=== PATIENT | male | born 1990 | race Caucasian/White ===

== ENCOUNTER → 2018-02-11 07:46 | Outpatient (CLI) | payer OTHER, SELFPAY | PROVIDERS: Family Provider Pediatrics; PCP Emergency Medicine; Visit Provider Emergency Medicine | DX: R07.9 Chest pain, unspecified (principal) | CPT/HCPCS: 93017 ==

== ENCOUNTER → 2020-03-15 12:40 | Outpatient (CLI) | payer BC, SELFPAY ==
[2020-03-15 13:44] LABS: Basophils # 0.1 K/mm3 (0-0.2); Basophils % 0.8 % (0.1-2.0); Eosinophils # 0.4 K/mm3 (0.0-0.4); Eosinophils % 6.4 % (0.1-12.0); Hematocrit 44.8 % (42.0-52.0); Hemoglobin 15.2 g/dL (14.1-18.0); Lymphocytes # 1.5 K/mm3 (0.7-4.5); Mean Corpuscular Hemoglobin 28.8 pg (27.0-31.2); Mean Corpuscular Volume 84.7 fl (80-94); Mean Platelet Volume 9.1 fl (7.4-10.4); Monocytes # 0.4 K/mm3 (0.1-1.0); Monocytes % 7.2 % (1.7-9.3); Neutrophils # 3.6 K/mm3 (1.8-7.8); Neutrophils % 60.6 % (37.0-80.0); Platelet Count 196 K/mm3 (142-424); Red Blood Count 5.29 M/mm3 (4.60-6.20); Red Cell Distribution Width 12.7 % (11.5-17.5)
[2020-03-16 14:08] LABS: Covid-19 Nasal PCR Sendout Lex Not Detected
== END ==
PROVIDERS: PCP Family Medicine; Visit Provider Physician Assistant
DX: Z03.818 Encounter for observation for suspected exposure to other biological agents ruled out (principal)
CPT/HCPCS: 85025; U0004

== ENCOUNTER → 2020-05-23 11:14 | Outpatient (CLI) | payer BC, SELFPAY ==
[2020-05-23 13:46] LABS: Basophils # 0.1 K/mm3 (0-0.2); Basophils % 0.4 % (0.1-2.0); Eosinophils # 0.1 K/mm3 (0.0-0.4); Hematocrit 48.7 % (42.0-52.0); Hemoglobin 15.7 g/dL (14.1-18.0); Lymphocytes % 9.2 % (10-50); Mean Corpuscular HGB Conc 32.2 g/dL (31.8-35.4); Mean Platelet Volume 8.8 fl (7.4-10.4); Monocytes # 0.7 K/mm3 (0.1-1.0); Monocytes % 6.6 % (1.7-9.3); Neutrophils % 82.8 % (37.0-80.0); Platelet Count 189 K/mm3 (142-424); Red Cell Distribution Width 12.9 % (11.5-17.5); White Blood Count 10.9 K/mm3 (4.8-10.8)
[2020-05-23 14:40] LABS: Strep Scrn Group A (Rapid) Negative (Negative)
[2020-05-24 10:43] LABS: Covid-19 Nasal PCR Sendout Lex Not Detected
== END ==
PROVIDERS: PCP Family Medicine; Visit Provider Nurse Practitioner
DX: Z03.818 Encounter for observation for suspected exposure to other biological agents ruled out (principal)
CPT/HCPCS: 36415; 85025; 87430; U0004

== ENCOUNTER → 2020-06-17 11:33 | Outpatient (CLI) | payer BC, SELFPAY ==
--- NOTE | 2020-06-17 11:50 | ECG_ITS ---
APPROVED REPORT Exam: Resting ECG HR:70 bpm ECG Measurements Heart Rate 70 AXES ME 128 P 65 QRSd 90 QRS 84 QT 358 T 72 QTc 386 Conclusion Normal sinus rhythm Normal ECG Electronically signed by : Marcel Peres, 06/17/2020 19:06:49
== END ==
PROVIDERS: PCP Family Medicine; Visit Provider Nurse Practitioner Family
DX: I10 Essential (primary) hypertension (principal)
CPT/HCPCS: 93005

== ENCOUNTER → 2020-08-01 12:41 | Outpatient (CLI) | payer BC, SELFPAY | PROVIDERS: Visit Provider Obstetrics & Gynecology | DX: Z31.41 Encounter for fertility testing (principal) ==

== ENCOUNTER 2021-03-01 11:42 | Emergency (ER) | payer BC, SELFPAY ==
[2021-03-01 13:16] VITALS: BP 132/92; PULSE 79; RESP 19; TEMP 36.7; O2SAT 99; BMI 20.7
--- NOTE | 2021-03-01 13:17 | HMH.EDUTC ---
[facility] [place] Clinical Impression: Exposure to COVID-19 virus Disposition: Home, Self-Care Condition on Discharge: Good Instructions: DI for COVID-19 (Suspected or Confirmed ), Preventing the Spread of Coronavirus Discharge Instructions Additional Instructions: Drink plenty of fluids. Take tylenol for pain or fever. Return if you begin to have difficulty breathing. Follow up with your regular doctor. GO TO THE ER FOR ANY WORSENING SYMPTOMS Quarantine until you know the results of your covid-19 test. If it is positive, the health department should call you and give you further instructions about your length of Quarantine and other things. Notify your school or workplace of your results and follow their instructions regarding return to work/school. Referrals: Yuko Godoy APRN [Primary Care Provider] - Time of Disposition: 13:22 Medical Decision Making - Medical Records Medical records reviewed: No: I reviewed the patient's medical records. - Vj Inquiry Pt receiving controlled substance: No Vital Signs: 03/01/21 13:16 03/01/21 13:42 Temperature 98.1 F 98.1 F Temperature Source Oral Pulse Rate 79 Pulse Rate [Left] 79 Respiratory Rate 19 18 Blood Pressure 132/92 H Blood Pressure [Right Arm] 132/92 H Blood Pressure Mean [Right Arm] 105 02 Sat by Pulse Oximetry 99 Orders (Tests/Meds): ORDERS Category Date Time Status Covid-19 Nasal PCR ([facility]) Routine Lab 03/01/21 12:55 Received [facility] [place] - General Stated complaint: covid exposure, no symptoms Time Seen by Provider: 03/01/21 13:18 - History of Present Illness Provider Complaint: He was exposed to covid-19 at his work. His exposure would have occured about 5 days ago. He denies any symptoms so far. - Related Data Allergies Allergy/AdvReac Type Severity Reaction Status Date / Time No Known Allergies Allergy Verified 03/01/21 13:18 [facility] History - Hepatitis A Screen Attestation statement:: This patient has been screened for Hepatitis A risk factors. I have reviewed the patient's past medical history: Yes ROS Obtained: Yes All systems reviewed & no additional complaints - Constitutional Constitutional: Reports system reviewed and no additional complaints, except as docu - Eyes Eyes: Reports system reviewed and no additional complaints, except as docu - ENT Ears, Nose, Mouth, and Throat: Reports system reviewed and no additional complaints, except as docu - Cardiovascular Cardiovascular: Reports system reviewed and no additional complaints, except as docu - Respiratory Respiratory: Reports system reviewed and no additional complaints, except as docu Physical Exam - General General appearance: alert, in no apparent distress - Head Head exam: atraumatic, normocephalic, normal inspection - Eye Eye exam: Present: normal appearance, PERRL, EOMI - ENT ENT exam: Present: normal exam, normal oropharynx, mucous membranes moist, TM's normal bilaterally, normal external ear exam - Neck Neck exam: Present: normal inspection, full ROM, trachea midline. Absent: meningismus, lymphadenopathy - Chest Chest inspection: Present: normal inspection, symmetric chest wall rise. Absent: tenderness - Respiratory Respiratory exam: Present: normal lung sounds bilaterally. Absent: respiratory distress - Cardiovascular Cardiovascular exam: Present: regular rate, normal rhythm. Absent: JVD - Abdominal Exam Abdominal exam: Present: soft, normal bowel sounds. Absent: distention, tenderness, guarding - Extremities Exam Extremities exam: Present: normal inspection, full ROM, normal capillary refill. Absent: calf tenderness - Back Exam Back exam: Present: normal inspection. Absent: tenderness - Neurological Exam Neurological exam: Present: alert, oriented X3 - Psychiatric Psychiatric exam: Present: normal affect, normal mood - Skin Skin exam: Present: warm, dry, intact, normal colo
[2021-03-01 13:42] VITALS: BP 132/92; PULSE 79; RESP 18; TEMP 36.7
== END 2021-03-01 13:46 | disposition home or self-care (01) ==
PROVIDERS: Emergency Provider Nurse Practitioner Family; PCP Nurse Practitioner Family
DX: Z20.822 Contact with and (suspected) exposure to COVID-19 (principal)
CPT/HCPCS: 99202; G0463; U0003

== ENCOUNTER 2021-03-11 11:59 | Emergency (ER) | payer BC, SELFPAY ==
[2021-03-11 13:42] VITALS: BP 143/96; PULSE 81; RESP 18; TEMP 36.9; O2SAT 98; BMI 20.7
[2021-03-11 13:45] VITALS: BP 143/96; PULSE 81; RESP 18; TEMP 36.6
--- NOTE | 2021-03-11 14:01 | HMH.EDUTC ---
[facility] – [place] Disposition Clinical Impression: Viral syndrome, Exposure to COVID-19 virus Disposition: Home, Self-Care Condition on Discharge: Good Instructions: DI for COVID-19 (Suspected or Confirmed ), Preventing the Spread of Coronavirus Discharge Instructions Additional Instructions: Drink plenty of fluids. Take tylenol for pain or fever. Return if you begin to have difficulty breathing. Follow up with your regular doctor. GO TO THE ER FOR ANY WORSENING OR CONCERNING SYMPTOMS Quarantine until you know the results of your covid-19 test. If it is positive, the health department should call you and give you further instructions about your length of Quarantine and other things. Notify your school or workplace of your results and follow their instructions regarding return to work/school. Referrals: Yuko Godoy APRN [Primary Care Provider] - Forms: Work/School Release Time of Disposition: 14:08 Medical Decision Making - Medical Records Medical records reviewed: No: I reviewed the patient's medical records. - Vj Inquiry Pt receiving controlled substance: No Vital Signs: 03/11/21 13:42 03/11/21 13:45 Temperature 98.4 F 98 F Temperature Source Oral Pulse Rate 81 Pulse Rate [Left] 81 Respiratory Rate 18 18 Blood Pressure 143/96 H Blood Pressure [Right Arm] 143/96 H Blood Pressure Mean [Right Arm] 111 02 Sat by Pulse Oximetry 98 [facility] [place] HPI - General Stated complaint: covid test Time Seen by Provider: 03/11/21 14:01 Mode of Arrival: Ambulatory Source of Information: Patient Limitations: No Limitations Description of Symptoms (Recalled from Triage Doc. by RN): pt c/o LORENZO, body aches and back is achey. needs a covid test. HEENT Symptoms (Recalled from RN notes): Yes (LORENZO) Resp Symptoms (Recalled from RN notes): No Skin Symptoms (Recalled from RN notes): No MS Symptoms (Recalled from RN notes): No Functional Status (Recalled from RN notes): body aches - History of Present Illness Provider Complaint: He states that for the past 2 days he has had body aches, felt bad and had some chilling. He denies any documented fever. He has been exposed to covid-19 around 5 days ago approx. - Related Data Allergies Allergy/AdvReac Type Severity Reaction Status Date / Time No Known Allergies Allergy Verified 03/01/21 13:18 - Worker's Comp Is this a Worker's Comp case?: No H History - Hepatitis A Screen Drug use history?: No High risk sexual behaviors?: No History of sexually transmitted infection?: No Currently employed?: No Childcare worker?: No Do you have indoor plumbing?: Yes Do you have electricity?: Yes Attestation statement:: This patient has been screened for Hepatitis A risk factors. I have reviewed the patient's past medical history: Yes ROS Obtained: Yes All systems reviewed & no additional complaints - Constitutional Constitutional: Reports system reviewed and no additional complaints, except as docu - Eyes Eyes: Reports system reviewed and no additional complaints, except as docu - ENT Ears, Nose, Mouth, and Throat: Reports system reviewed and no additional complaints, except as docu - Cardiovascular Cardiovascular: Reports system reviewed and no additional complaints, except as docu - Respiratory Respiratory: Reports system reviewed and no additional complaints, except as docu - Gastrointestinal Gastrointestingal: Reports: system reviewed and no additional complaints, except as docu Physical Exam - General General appearance: alert, in no apparent distress - Head Head exam: atraumatic, normocephalic, normal inspection - Eye Eye exam: Present: normal appearance, PERRL, EOMI - ENT ENT exam: Present: normal exam, normal oropharynx, mucous membranes moist, TM's normal bilaterally, normal external ear exam - Neck Neck exam: Present: normal inspection, full ROM, trachea midline. Absent: meningismus, lymphadenopathy - Chest Chest inspection:
== END 2021-03-11 14:19 | disposition home or self-care (01) ==
PROVIDERS: Emergency Provider Nurse Practitioner Family; PCP Nurse Practitioner Family
DX: Z20.822 Contact with and (suspected) exposure to COVID-19 (principal)
CPT/HCPCS: 99202; G0463; U0003

== ENCOUNTER 2021-08-01 21:07 | Emergency (ER) | payer BC, SELFPAY ==
[2021-08-01 21:08] VITALS: BP 161/87; PULSE 82; RESP 16; TEMP 36.6; O2SAT 99; BMI 20.3
--- NOTE | 2021-08-01 21:20 | ECG_ITS ---
APPROVED REPORT Exam: Resting ECG HR:76 bpm ECG Measurements Heart Rate 76 AXES PA 135 P 53 QRSd 90 QRS 78 QT 343 T 60 QTc 374 Conclusion SINUS RHYTHM NORMAL ECG UNCONFIRMED REPORT Electronically signed by : Marcel Peres MD 08/04/2021 17:29:58
--- NOTE | 2021-08-01 21:28 | XR_ITS ---
PROCEDURE INFORMATION: Exam: XR Chest Exam date and time: 08/01/2021 9:28 PM Age: 30 years old Clinical indication: Other: Syncope; Additional info: Snycope TECHNIQUE: Imaging protocol: XR of the chest. Views: 2 views. COMPARISON: No relevant prior studies available. FINDINGS: Lungs: Subtle interstitial haziness could reflect interstitial pneumonia. No consolidation. Pleural spaces: Unremarkable. No pleural effusion. No pneumothorax. Heart/Mediastinum: Unremarkable. No cardiomegaly. Bones/joints: Unremarkable. IMPRESSION: Subtle interstitial haziness could reflect interstitial pneumonia. Correlate clinically.
--- NOTE | 2021-08-01 21:39 | PC.NURSE ---
pt going for cxr
[2021-08-01 21:45] LABS: Basophils # 0.2 K/mm3 (0-0.2); Basophils % 3.1 % (0.1-2.0); Eosinophils # 0.2 K/mm3 (0.0-0.4); Eosinophils % 3.3 % (0.1-12.0); Hematocrit 47.4 % (42.0-52.0); Hemoglobin 15.7 g/dL (14.1-18.0); Lymphocytes # 2.2 K/mm3 (0.7-4.5); Lymphocytes % 32.9 % (10-50); Mean Corpuscular HGB Conc 33.1 g/dL (31.8-35.4); Mean Corpuscular Hemoglobin 28.1 pg (27.0-31.2); Mean Corpuscular Volume 85.1 fl (80-94); Mean Platelet Volume 8.8 fl (7.4-10.4); Monocytes # 0.4 K/mm3 (0.1-1.0); Monocytes % 5.3 % (1.7-9.3); Neutrophils # 3.6 K/mm3 (1.8-7.8); Neutrophils % 55.3 % (37.0-80.0); Platelet Count 229 K/mm3 (142-424); Red Blood Count 5.57 M/mm3 (4.60-6.20); Red Cell Distribution Width 13.1 % (11.5-17.5); White Blood Count 6.6 K/mm3 (4.8-10.8)
[2021-08-01 21:51] LABS: Alanine Aminotransferase 19 U/L (12-78); Albumin Level 5.1 g/dl (3.5-5.0); Albumin/Globulin Ratio 1.8 (1.1-1.8); Alkaline Phosphatase 36 U/L (38-126); Anion Gap 12.5 mEq/L (5-15); Aspartate Amino Transferase 36 U/L (17-59); Bilirubin,Total 0.6 mg/dl (0.2-1.3); Blood Urea Nitrogen 12 mg/dl (9-20); Calcium 9.6 mg/dl (8.4-10.2); Carbon Dioxide 28 mmol/L (22.0-30.0); Chloride 101 mmol/L (98-107); Creatinine Clearance Estimated 131 mL/min (50-200); Estimated Glomerular Filt Rate 114 ml/min (>60); GFR (African American) 138 ML/MIN (>60); Globulin 2.8 g/dL (1.3-3.2); Glucose 92 mg/dl (74-100); Potassium 3.5 mmoL/L (3.5-5.1); Sodium 138 mmol/L (136-145); Total Protein,Serum 7.9 g/dl (6.3-8.2)
[2021-08-01 21:55] LABS: C-Reactive Protein 1.4 mg/L (0-4)
[2021-08-01 22:06] LABS: Troponin I < 0.01 ng/ml (0.00-0.034)
[2021-08-01 22:10] LABS: Procalcitonin < 0.030 ng/mL (0.0-2.0)
[2021-08-01 22:23] LABS: Erythrocyte Sedimentation Rate 2 mm/hr (0-15)
--- NOTE | 2021-08-01 23:10 | HMH.EDSYNC ---
ED Disposition Clinical Impression: Vasovagal syncope Disposition: Home, Self-Care Condition on Discharge: Good Instructions: DI for Syncope in Adults (Fainting) Additional Instructions: fluids and see pcp for follow up Referrals: Yuko Godoy APRN [Primary Care Provider] - - Critical Care Critical Care Time: No Attestation: On 08/01/21, the high probability of a clinically significant, sudden or life threatening deterioration of the following system(s) required my full and direct attention, intervention and personal management. The time I documented below is in addition to time spent performing reported procedures but includes the following listed in this critical care notation. Medical Decision Making - Medical Records Medical records reviewed: Yes: I reviewed the patient's medical records. - Vj Inquiry Pt receiving controlled substance: No Vital Signs: 08/01/21 21:08 Temperature 97.8 F Temperature Source Oral Pulse Rate [Right] 82 Respiratory Rate 16 Blood Pressure [Right Arm] 161/87 H Blood Pressure Mean [Right Arm] 111 02 Sat by Pulse Oximetry 99 - Lab Data Lab results reviewed: Yes: I reviewed the patient's lab results. Lab Results 08/01/21 21:30: WBC 6.6, RBC 5.57, Hgb 15.7, Hct 47.4, MCV 85.1, MCH 28.1, MCHC 33.1, RDW 13.1, Plt Count 229, MPV 8.8, Neut % (Auto) 55.3, Lymph % (Auto) 32.9, Griggs % (Auto) 5.3, Eos % (Auto) 3.3, Baso % (Auto) 3.1 H, Neut # (Auto) 3.6, Lymph # (Auto) 2.2, Griggs # (Auto) 0.4, Eos # (Auto) 0.2, Baso # (Auto) 0.2, ESR 2 08/01/21 21:30: Sodium 138, Potassium 3.5, Chloride 101, Carbon Dioxide 28, Anion Gap 12.5, BUN 12, Creatinine 0.80, Estimated Creat Clear 131, Estimated GFR 114, Est GFR ( Amer) 138, Glucose 92, Calcium 9.6, Total Bilirubin 0.6, AST 36, ALT 19, Alkaline Phosphatase 36 L, Troponin I < 0.01, C-Reactive Protein 1.4, Total Protein 7.9, Albumin 5.1 H, Globulin 2.8, Albumin/Globulin Ratio 1.8, Procalcitonin < 0.030 Result diagrams: 08/01/21 21:30 08/01/21 21:30 Orders (Tests/Meds): ED MEDICATIONS Generic Name Dose Route Start Last Admin Trade Name Chente PRN Reason Stop Dose Admin Sodium Chloride 1,000 mls @ 999 mls/hr 08/01/21 21:30 08/01/21 21:34 Sod Chlor 0.9% 1000ml Bag IV 08/01/21 22:30 999 mls/hr .Q1H1M BRITTANI Administration Sodium Chloride 1,000 mls @ 999 mls/hr 08/01/21 23:15 Sod Chlor 0.9% 1000ml Bag IV 08/02/21 00:15 .Q1H1M BRITTANI ORDERS Category Date Time Status Troponin I Q3H Lab 08/02/21 00:30 Ordered Troponin I Q3H Lab 08/02/21 03:30 Ordered - Radiology Data #1 Image(s): Chest Image Reviewed: Yes I have reviewed radiologist's interpretation Preliminary Findings: Normal/NAD - ECG Data Tracing #1 Normal Sinus Rhythm: Yes Ischemic changes: non-specific ST-T wave changes Medical Decision Narrative: had prob vasovagal episode and now has stable exam and vital signs Syncope HPI - General Chief Complaint: Syncope Stated Complaint: passed out Time Seen by Provider: 08/01/21 21:30 Mode of Arrival: Ambulatory Source of Information: Patient, Medical Record Limitations: No Limitations Description of Symptoms (Recalled from ER Triage Doc. 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 pt became lighheaded, hot, and passed out. pt has no c/o @ this time - History of Present Illness HPI narrative: passed out at vet at seeing iv placed on dog complaint: felt faint Onset (ago): hour(s) Prodromal symptoms: none Witnessed: no Context: at rest Treatments prior to arrival: none - Related Data Allergies Allergy/AdvReac Type Severity Reaction Status Date / Time No Known Allergies Allergy Verified 03/01/21 13:18 [facility] History - Hepatitis A Screen Drug use history?: No High risk sexual behaviors?: No History of sexually transmitted infection?: No Currently employed?: No Childcare worker?: No Do you have indoor
[2021-08-01 23:20] VITALS: BP 141/75; PULSE 80; RESP 18; TEMP 36.6; O2SAT 99
== END 2021-08-01 23:22 | disposition home or self-care (01) ==
PROVIDERS: Emergency Provider Emergency Medicine; PCP Nurse Practitioner Family
DX: R55 Syncope and collapse (principal); W18.39XA Other fall on same level, initial encounter; Y92.89 Other specified places as the place of occurrence of the external cause
CPT/HCPCS: 71046; 80053; 84145; 84484; 85025; 85651; 86140; 93005; 96365; 99283

== ENCOUNTER 2022-08-07 15:00 | Outpatient (RCR) | payer OTHER, SELFPAY | END 2022-08-07 15:05 | disposition home or self-care (01) | LOC: OT 15:00 | PROVIDERS: Visit Provider Orthopaedic Surgery | DX: M25.511 Pain in right shoulder (principal) | CPT/HCPCS: 97010; 97014; 97035; 97110; 97140; 97164; 97165; 97530; G0283 ==

== ENCOUNTER 2024-09-22 15:21 | Emergency (ER) | payer BC, SELFPAY ==
[2024-09-22 15:23] VITALS: BP 149/85; PULSE 100; RESP 18; TEMP 36.6; O2SAT 100; BMI 21.7
[2024-09-22 15:34] VITALS: PULSE 100; O2SAT 100
--- NOTE | 2024-09-22 15:34 | PC.NURSE ---
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 pt denies LOC. pt presents with a through and through puncture to his R upper lip that is bleeding minimally. Pt has dried blood n his nares and reports bilateral epistaxis. pt has not had a TDAP in >5yrs. pt reports his LORENZO/facial yeni is 6/10 and throbbing in nature.pts only medical hx is HTN, he takes 5mg lisinopril daily.
--- NOTE | 2024-09-22 15:38 | CT_ITS ---
FINAL REPORT TECHNIQUE: Noncontrast exam This study was performed with techniques to keep radiation doses as low as reasonably achievable, (ALARA). Individualized dose reduction techniques using automated exposure control or adjustment of mA and/or kV according to the patient''s size were employed. CLINICAL HISTORY: trauma, malocclusion, nasal bleeding COMPARISON: None FINDINGS: No intracranial hemorrhage identified. Ventricles are normal. No mass effect is seen. There is pneumocephalus along the cavernous sinus region suggestive of skull base fracture. IMPRESSION: No acute intracranial hemorrhage or brain edema. Mild pneumocephalus of the cavernous sinus region suspicious for skull base fracture, although not well demonstrated. Consider CT temporal bones. Reviewed, Interpreted and Dictated by Sang Bravo MD Transcribed by Demetra Esquivel Authenticated and [facility]
--- NOTE | 2024-09-22 15:38 | CT_ITS ---
FINAL REPORT TECHNIQUE: Thin section axial CT with sagittal and coronal reconstruction without contrast This study was performed with techniques to keep radiation doses as low as reasonably achievable, (ALARA). Individualized dose reduction techniques using automated exposure control or adjustment of mA and/or kV according to the patient''s size were employed. CLINICAL HISTORY: head trauma, cow kicked gate & gate hit pt in face COMPARISON: None FINDINGS: No fracture is seen. Alignment is normal. No obvious bony spinal canal stenosis is present. No gross disk abnormalities are seen. IMPRESSION: No fracture or malalignment Reviewed, Interpreted and Dictated by Sang Bravo MD Transcribed by Demetra Esquivel Authenticated and . [facility]
--- NOTE | 2024-09-22 15:38 | CT_ITS ---
FINAL REPORT TECHNIQUE: Thin section axial CT with coronal and sagittal reconstruction without IV contrast. This study was performed with techniques to keep radiation doses as low as reasonably achievable, (ALARA). Individualized dose reduction techniques using automated exposure control or adjustment of mA and/or kV according to the patient''s size were employed. CLINICAL HISTORY: trauma, malocclusion, nasal bleeding; calc kicked gate and gate hit patient in face COMPARISON: None FINDINGS: There are comminuted fractures involving the anterior and posterolateral aldrich of the bilateral maxillary sinuses. Fractures extend into the pterygoid plates. There is a nondisplaced nasal fracture. There is a minimally displaced mid right zygomatic arch fracture. A nasal septal fracture is noted with deviation of the nasal septum to the right. Bilateral orbital floor fractures are seen. The TMJs are intact. There is no evidence of mandible fracture. There is pneumocephalus along the cavernous sinuses bilaterally compatible with skull base fracture, although exact site of skull base fracture is not definitively visualized. IMPRESSION: Extensive facial fractures involving bilateral maxillary sinuses, orbital floors, and pterygoid plates. Nasal involvement is noted as well. Pneumocephalus along cavernous region suggesting skull base fracture. Temporal bone CT may be considered to evaluate for skull base injury. Reviewed, Interpreted and Dictated by Sang Bravo MD Transcribed by Demetra Esquivel Authenticated and [facility]
--- NOTE | 2024-09-22 15:55 | ED_ITS ---
Discharge Plan Disposition Patient Disposition: Xfer Short-Term Hosp Chief Complaint: PAIN Prescriptions Prescriptions: No Action lisinopril 5 mg tablet 5 mg PO DAILY Referrals Follow up/Referrals: Isaias Kidd MD [Primary Care Provider] - See instructions Clinical Impressions Clinical Impression: Extensive facial fractures, Pneumocephalus, Laceration of lip Stand Alone Forms Stand Alone Forms: Transfer Record - ED Print Language Print Language: Peruvian Discharge ED Provider: Gaby Nesbitt General Adult HPI General Chief complaint: PAIN Stated complaint: AO 09/22/24 1420, kicked in face by cow Time Seen by Provider: 09/22/24 15:33 Mode of Arrival: Wheelchair Source of Information: Patient Description of Symptoms (Recalled from ER Triage Doc. by RN): Pt presents for evaluation of a facial injury. Pt was kicked in the face by a cow. Pt did not have LOC, denies BT, denies c-spine tenderness History of Present Illness HPI narrative: This patient is a 33-year-old male who has past medical history of hypertension presented to the emergency department for evaluation with concern for facial trauma. Patient was closing a gate when a cow kicked the gate, and the gate flew back and hit him in the face. He did not lose consciousness when this happened. He complains of significant facial pain and feeling like his bite does not align properly. He also suffered lacerations to the right side of his lip and states that his lip feels numb. No other concerns or injuries noted at this time. He was well prior to this. He does not take blood thinners or aspirin. He is unsure when his last tetanus shot was Related Data Home Medications ?Medication ?Instructions ?Recorded ?Confirmed lisinopril 5 mg tablet 5 mg PO DAILY 09/22/24 09/22/24 Allergies Allergy/AdvReac Type Severity Reaction Status Date / Time No Known Allergies Allergy Verified 09/22/24 15:46 [facility] Disclaimer: The information contained in this section may have been updated after the patient was seen, as this information can be updated by other users. Social History Smoking Status: Never smoker alcohol intake: never current occupational status: employed Travel in the last 8 weeks: None Other Medical History Have you received the Flu Vaccine for this season: No Have you received the Pneumonia Vaccine: No ROS Obtained: Yes All systems reviewed & no additional complaints except as documented Physical Exam General General appearance: alert and in no apparent distress Eye Eye exam: Present normal appearance, PERRL and EOMI ENT ENT exam: Present mucous membranes moist and normal external ear exam Expanded ENT Exam Nasal speculum exam: Bilateral: epistaxis (Dried blood in both nares with no nasal septal hematoma) Nose/Mouth Image: 2 1. 2 cm lip laceration that is hemostatic. On the inside of the upper lip here, there is an even larger complex lip laceration Comment: Sensation of jaw malocclusion without obvious palpable dislocation or instability. No facial instability noted. No appreciable loose teeth noted on exam. Neck Neck exam: Present normal inspection, full ROM and trachea midline; Absent tenderness Chest Chest inspection: Present normal inspection and symmetric chest wall rise; Absent tenderness Respiratory Respiratory exam: Present normal lung sounds bilaterally; Absent respiratory distress, wheezes, stridor or accessory muscle use Cardiovascular Cardiovascular exam: Present regular rate and normal rhythm Abdominal Exam Abdominal exam: Present soft; Absent distention, tenderness or guarding Extremities Exam Extremities exam: Present normal inspection, full ROM and normal capillary refill; Absent tenderness or edema Back Exam Back exam: Present normal inspection and full ROM; Absent tenderness Neurological Exam Neurological exam: Present alert, oriented X3, CN II-XII intact and normal gait; Absent motor sensory deficit Psychiatric Psychiatric exam: Present normal affect and normal mood Skin Skin exam: Present warm and dry Medical Decision Making Medical Records Medical records reviewed: Yes I reviewed the patient's medical records. Screening: Per USPSTF and CDC recommendations, given the prevalence of disease in our region, it is our hospital?s policy to screen for HIV and viral Hepatitis for all patients aged 18 and over and those with ongoing risk factors. Vj Inquiry Pt receiving controlled substance: No Vital Signs: 09/22/24 15:23 09/22/24 15:34 09/22/24 16:45 Temperature 98 F Temperature Source Temporal Artery Scan Pulse Rate 100 H 92 H Pulse Rate [Right] 100 H Respiratory Rate 18 15 Blood Pressure 130/82 Blood Pressure [Right Arm] 149/85 H Blood Pressure Mean [Right Arm] 106 Blood Pressure Source [Right Arm] Automatic Cuff Blood Pressure Position [Right Arm] Sitting 02 Sat by Pulse Oximetry 100 100 100 Oxygen Delivery Method Room Air Lab Data Lab results reviewed: Yes I reviewed the patient's lab results. Orders (Tests/Meds): ED MEDICATIONS Discontinued Medications Generic Name Dose Route Start Last Admin Trade Name Chente PRN Reason Stop Dose Admin Acetaminophen 1,000 mg 09/22/24 15:39 09/22/24 16:00 Acetaminophen 1,000mg/100ml Vial IV 09/22/24 15:40 1,000 mg ONCE ONE Administration Ketorolac Tromethamine 15 mg 09/22/24 15:39 09/22/24 16:02 Ketorolac 30mg/Ml Vial IV 09/22/24 15:40 15 mg ONCE ONE Administration Ondansetron HCl 4 mg 09/22/24 15:39 09/22/24 16:03 Ondansetron 4mg/2ml Vial IV 09/22/24 15:40 4 mg ONCE ONE Administration Tetanus/Reduced Diphtheria/Acell Pertussis 0.5 ml 09/22/24 15:39 09/22/24 16:00 Tet/Diphth/Pert-Adult 0.5ml Syringe IM 09/22/24 15:40 0.5 ml .ONCE ONE Administration ORDERS Category Date Time Status CT cervical spine wo con Stat Cat Scan 09/22/24 15:[address] facial bones wo con Stat Cat Scan 09/22/24 15:[address] head/brain wo con Stat Cat Scan 09/22/24 15:38 Completed HIV Combo Stat Lab 09/22/24 15:44 Received Hepatitis C Ab Qual. W/ RFX Stat Lab 09/22/24 15:44 Received Medical Decision Narrative: In summary, this patient is a 33-year-old male presenting to the Emergency Department for evaluation of high risk facial trauma. Differential diagnoses considered include but are not limited to facial fracture, nasal bone fracture, nasal septal hematoma, intracranial hemorrhage, C-spine fracture, polytrauma. Ruling out the most morbid conditions drove assessment. It should be noted patient's history includes hypertension which may or may not be at goal therapy. This complicates all aspects of care by increasing patient's risk for morbidity. On exam, the patient has dried blood in both nares, facial tenderness to palpation, and sensation of jaw malocclusion without obvious palpable dislocation. Significant facial swelling and TTP without obvious facial instability. No obvious loose teeth noted. He does have a complex through and through lip laceration to the right upper lip. Tdap booster was administered, as he is unsure when his last tetanus shot was. No other traumatic injuries noted on clinical exam. He is alert and neurologically intact. Workup included CT of the head, face, and C-spine without IV contrast. He was given IV Toradol, acetaminophen, and Zofran for symptomatic improvement. I independently interpreted CT scans prior to the radiologist read and noted extensive facial fractures and pneumocephalus. Please see their read for final interpretation. Given extensive facial fractures and pneumocephalus, I feel patient would benefit from transfer to higher level of care for facial surgery/trauma surgery evaluation. I called and discussed the case with Pamela Ortiz NP at in transfer center, who accepted the patient on behalf of Dr. Palma for transfer to [facility] ED. I recommended to the patient EMS transport for monitoring given his pneumocephalus, and we discussed the potential for decompensation of traumatic brain injury. Patient elects to go POV instead because family in [employer] [facility] and advises she can monitor him en route. After risk versus benefit discussion, family signed patient out to go POV to [facility] ED. Patient left in stable condition for transfer. Critical Care Critical Care Time Critical Care Time: Yes Attestation: On 09/22/24, the high probability of a clinically significant, sudden or life threatening deterioration of the following system(s) required my full and direct attention, intervention and personal management. The time I documented below is in addition to time spent performing reported procedures but includes the following listed in this critical care notation. Total Time Total Critical Care Time: 30
--- NOTE | 2024-09-22 15:58 | PC.NURSE ---
needed to go to the bathroom. pt was given a urinal due to not being able to get up
[2024-09-22] MEDS: TET/DIPHTH/PERT-ADULT 0.5ML SYRINGE 0.5 ML IM (16:00)
[2024-09-22] MEDS: ACETAMINOPHEN 1,000MG/100ML VIAL 1000 MG IV (16:00)
[2024-09-22] MEDS: KETOROLAC 30MG/ML VIAL 15 MG IV (16:02)
[2024-09-22] MEDS: ONDANSETRON 4MG/2ML VIAL 4 MG IV (16:03)
--- NOTE | 2024-09-22 16:43 | PC.NURSE ---
Called [facility] per Dr Nesbitt to speak with them about this pt. Pt has extensive facial fractures and Pneumosyphillis.. Dr Nesbitt is speaking with Dr rOtiz at this time
[2024-09-22 16:45] VITALS: BP 130/82; PULSE 92; RESP 15; O2SAT 100
--- NOTE | 2024-09-22 16:46 | PC.NURSE ---
pt was accepted by Dr Palma at [facility]
--- NOTE | 2024-09-22 16:55 | PC.NURSE ---
REPORT CALLED TO CHERYL SINGLETON AT ED
[2024-09-22 17:02] VITALS: BP 130/82; PULSE 92; RESP 18; TEMP 36.6; O2SAT 98
[2024-09-22 17:11] LABS: HIV Combo NEGATIVE (Negative)
[2024-09-22 17:19] LABS: Hepatitis C Ab Qual. W/ RFX NEGATIVE (Negative)
== END 2024-09-22 17:05 | disposition short-term general hospital (02) ==
PROVIDERS: Emergency Provider Emergency Medicine; PCP Family Medicine
DX: S02.92XA Unspecified fracture of facial bones, initial encounter for closed fracture (principal); G93.89 Other specified disorders of brain; S01.511A Laceration without foreign body of lip, initial encounter; W20.8XXA Other cause of strike by thrown, projected or falling object, initial encounter
CPT/HCPCS: 70450; 70486; 72125; 86803; 87389; 90471; 90715; 96374; 96375; 99285; J0131; J1885; J2405